=== PATIENT | female | born 2000 | race African-American/Black ===

== ENCOUNTER 2024-10-04 16:30 | Observation (INO) | payer MEDICAID, OTHER ==
[~2024-10-04] VITALS: Ht 170.2 cm; Wt 103.0 kg
[2024-10-04] MEDS ORDERED: PREN-96 PO (17:26)
[2024-10-04] MEDS ORDERED: METF-370 PO (17:26)
[2024-10-04] MEDS ORDERED: INSU1INJ19 SC (17:28)
--- NOTE | 2024-10-04 17:53 | DVH ---
BIOPHYSICAL PROFILE HISTORY: GDMA2 TECHNIQUE: Multiple transabdominal real-time grayscale sonographic images through the gravid uterus of the fetus with duplex Doppler color flow and M-mode spectral analysis FINDINGS: BIOPHYSICAL PROFILE: breathing score: 2 movement score: 2 tone score: 2 Quantitative MIGUEL score: 2 (MIGUEL: 12.5 Cm.) Total score: 8/8 Single live fetus in cephalic presentation. heart rate 142 beats per minute. Anterior Grade 2 placenta without previa or abruption Single live fetus at 34 weeks 2 days Biophysical profile score 8/8 corresponding to an JAQUAN of 11/13/2024 IMPRESSION: 1. Biophysical profile score: 8/8
[2024-10-04] MEDS: InsuLIN REG 1unit/0.01ml Soln (100units/ml) SC ONE (18:45)
[2024-10-04] MEDS: ACETAMINOPHEN 325 MG TAB PO ONE (18:46)
--- NOTE | 2024-10-05 06:17 | DVHDS2 ---
Discharge Summary Date of Admission Oct 04, 2024 at 16:30 Date of Discharge: Oct 04, 2024 Admitting Diagnosis GDMA2 Labs/Diagnostic Data: Laboratory Results Test 10/04/24 19:46 POC Glucose 194 mg/dl (70-106) Brief Hx & Hospital Course: patient with head ache , GDMA2 Operations or Procedures NST performed doing well reactive reassuring Condition at Discharge: Good Final Diagnosis/Problems List GDMA2 reassuring US and NST Discharge Disposition: Home Discharge Instruct/Medications Diet: Regular Activity: Light activity Follow Up/Referral: as scheduled kick counts labor precautions Scheduled Metformin Hydrochloride (Metformin Hcl), 1,000 MG PO DAILY, (Reported) Vit W/ Ferrous Fumara ( One Daily), 1 TAB PO DAILY, (Reported) Miscellaneous Medications Insulin Glargine (Basaglar Kwikpen), 100 UNIT SC, (Reported) Discharge Statement: "Patient was advised to return to the ER or call 911 if any headaches, dizziness, shortness of breath, chest pain, abdominal pain, bleeding, fevers, or worsening of medical condition. Patient was counseled about treatment plan, medications, possible side effects, patientverbalized understanding. All questions were answered to the best of my ability. This discharge took greater then 30 minutes in planning, reviewing documentation, counseling the patient, and discussing with other team members." ASSESSMENT ASSESSMENT Assessment Visit Coding OBGYN Date of Service: Oct 04, 2024 Billing Provider: RODOLFO TYLER DO WOOL MERCHANT Common Visit Codes: 19000-ZRI/OBS SAME DATE (LOW), 55496-TLG/OBS SAME DATE (MOD), 93194-UHY/OBS SAME DATE (HIGH) WOOL MERCHANT Procedure Codes: 69631-04- NON-STRESS TEST RODOLFO TYLER DO Oct 05, 2024 06:17
== END 2024-10-04 20:48 | disposition left against medical advice (07) ==
LOC: LDRP 16:30
PROVIDERS: ADMIT Obstetrics & Gynecology; ATTEND Obstetrics & Gynecology
DX: O24.419 Gestational diabetes mellitus in pregnancy, unspecified control (principal); Z3A.34 34 weeks gestation of pregnancy; Z98.890 Other specified postprocedural states; Z79.899 Other long term (current) drug therapy
CPT/HCPCS: 59025; 76819; 81002; 82948; 82962; 94760; 96372; G0378; J1815

== ENCOUNTER 2024-10-08 06:39 | Observation (INO) | payer MEDICAID ==
[~2024-10-08 06:39] MED LIST: INSU1INJ19 SC; METF-370 PO; PREN-96 PO
--- NOTE | 2024-10-09 12:45 | DVH ---
CLINICAL HISTORY: Gestational diabetes. COMPARISON: US BIOPHYSICAL PROFILE on DOS: 10/04/24 TECHNIQUE: biophysical profile was performed. Transabdominal sonographic images of the fetus we re obtained. FINDINGS: The fetus is in cephalic position. heart rate measures 127 BPM. Amniotic fluid index measures 12 cm. The placenta is anterior in position without evidence of previa or abruption. BPP profile is an overall score of 8/8, with 2/2 points for breathing, with at least one episode of breathing over a 30 second duration during a 30 minute observation, 2/2 points for m ovements, with 3 or more discrete body or limb movements, 2/2 points for tone, with one or more episodes of extremity extension with return to flexion, or opening and closing of hand, and 2/ 2 points for amniotic fluid, with at least 1 pocket of amniotic fluid that measures 2 cm in 2 perpend icular planes. IMPRESSION: BPP score of 8/8.
--- NOTE | 2024-10-10 07:34 | DVHDS2 ---
Physician Discharge Progress N Final Diagnosis: GDM 35WKS Operations or Procedures: Operations or Procedures NST REACTIVE REVIWED,SONO Condition on Discharge: Good Disposition: Home Discharge Instructions: Diet: Consistent carbohydrate Activity: No Restrictions, As Tolerated Medications: NA Follow Up Care: Specialist: 1W Discharge Statement: "Patient was advised to return to the ER or call 911 if any headaches, dizziness, shortness of breath, chest pain, abdominal pain, bleeding, fevers, or worsening of medical condition. Patient was counseled about treatment plan, medications, possible side effects, patientverbalized understanding. All questions were answered to the best of my ability. This discharge took greater then 30 minutes in planning, reviewing documentation, counseling the patient, and discussing with other team members." Visit Coding OBGYN Date of Service: Oct 09, 2024 Billing Provider: SNOW MCQUEEN DO CYLINDER HANDLER Common Visit Codes: 73258-[id number] INP/OBS CARE (HIGH) CYLINDER HANDLER Procedure Codes: 40256-26- NON-STRESS TEST SNOW MCQUEEN DO Oct 10, 2024 07:34
== END 2024-10-09 13:53 | disposition home or self-care (01) ==
LOC: EDBD → UNDOADMOB 11:00 → LDRP 11:00
PROVIDERS: ADMIT Obstetrics & Gynecology; ATTEND Obstetrics & Gynecology
DX: O24.419 Gestational diabetes mellitus in pregnancy, unspecified control (principal); Z3A.35 35 weeks gestation of pregnancy; Z98.890 Other specified postprocedural states; Z79.899 Other long term (current) drug therapy
CPT/HCPCS: 59025; 76819; 81002; 82948; 82962; G0378

== ENCOUNTER 2024-10-11 07:49 | Observation (INO) | payer MEDICAID ==
--- NOTE | 2024-10-11 14:01 | DVH ---
BIOPHYSICAL PROFILE HISTORY: GDMA2 TECHNIQUE: Multiple transabdominal real-time grayscale sonographic images through the gravid uterus of the fetus with duplex Doppler color flow and M-mode spectral analysis FINDINGS: BIOPHYSICAL PROFILE: breathing score: 2 of 2 movement score: 2 of 2 tone score: 2 of 2 Quantitative MIGUEL score: 2 of 2 (MIGUEL: 12 Cm.) Total score: 8 of 8 The cervix closed Single live fetus in cephalic presentation. heart rate 142 beats per minute. Anterior placenta without previa or abruption IMPRESSION: 1. Biophysical profile score: 8 of 8
--- NOTE | 2024-10-11 15:07 | DVHDS2 ---
Physician Discharge Progress N Final Diagnosis: GDM 35WKS Operations or Procedures: Operations or Procedures NST REACTIVE REVIWED,SONO Condition on Discharge: Good Disposition: Home Discharge Instructions: Diet: Consistent carbohydrate Activity: No Restrictions, As Tolerated Medications: NA Follow Up Care: Specialist: 4D Discharge Statement: "Patient was advised to return to the ER or call 911 if any headaches, dizziness, shortness of breath, chest pain, abdominal pain, bleeding, fevers, or worsening of medical condition. Patient was counseled about treatment plan, medications, possible side effects, patientverbalized understanding. All questions were answered to the best of my ability. This discharge took greater then 30 minutes in planning, reviewing documentation, counseling the patient, and discussing with other team members." Visit Coding OBGYN Date of Service: Oct 11, 2024 Billing Provider: SNOW MCQUEEN DO HEAD COACH Common Visit Codes: 48718-OPCYUJE INP/OBS CARE (HIGH) HEAD COACH Procedure Codes: 50528-80- NON-STRESS TEST SNOW MCQUEEN DO Oct 11, 2024 15:06
== END 2024-10-11 14:39 | disposition home or self-care (01) ==
LOC: LDRP 13:03 → UNDOADMOB 13:03 → LDRP 13:21
PROVIDERS: ADMIT Obstetrics & Gynecology; ATTEND Obstetrics & Gynecology
DX: O24.419 Gestational diabetes mellitus in pregnancy, unspecified control (principal); Z98.890 Other specified postprocedural states; Z79.899 Other long term (current) drug therapy; Z3A.35 35 weeks gestation of pregnancy
CPT/HCPCS: 59025; 76819; 81002; 82948; 94760; G0378

== ENCOUNTER 2024-10-18 15:58 | Observation (INO) | payer MEDICAID ==
--- NOTE | 2024-10-18 16:27 | DVHDS2 ---
Physician Discharge Progress N Final Diagnosis: GDM Operations or Procedures: Operations or Procedures NST/BPP MIGUEL all WNL Condition on Discharge: Stable Disposition: Home Discharge Instructions: Diet: Consistent carbohydrate Activity: Light activity Follow Up/Referral: As scheduled Medications: NA Follow Up Care: Discharge Statement: "Patient was advised to return to the ER or call 911 if any headaches, dizziness, shortness of breath, chest pain, abdominal pain, bleeding, fevers, or worsening of medical condition. Patient was counseled about treatment plan, medications, possible side effects, patientverbalized understanding. All questions were answered to the best of my ability. This discharge took greater then 30 minutes in planning, reviewing documentation, counseling the patient, and discussing with other team members." Visit Coding OBGYN Date of Service: Oct 18, 2024 Billing Provider: DANYEL DOS SANTOS DO TECHNICIAN AUTOMATED EQUIPMENT Common Visit Codes: 38044-ZZI/OBS SAME DATE (MOD) TECHNICIAN AUTOMATED EQUIPMENT Procedure Codes: 02510-81- NON-STRESS TEST DANYEL DOS SANTOS DO Oct 18, 2024 16:27
--- NOTE | 2024-10-18 16:49 | DVH ---
BIOPHYSICAL PROFILE HISTORY: GDMA2 TECHNIQUE: Multiple real-time grayscale sonographic images through the gravid uterus of the fetus wi th duplex Doppler color flow. FINDINGS: BIOPHYSICAL PROFILE: breathing score: 2 movement score: 2 tone score: 2 Quantitative MIGUEL score: 2 Total score: 8 out of 8 Placenta anteriorly positioned. Umbilical vessels appear to be looped around the neck. heart rate of 131 beats per minute. MIGUEL 10.5 cm IMPRESSION: Biophysical profile score: 8 out of 8 Findings suggestive of nuchal cord. Recommend marketing traffic manager consultation for further evaluation /management
== END 2024-10-18 17:30 | disposition home or self-care (01) ==
LOC: UNDOADMOB 15:58 → LDRP 15:58 → UNDODISOB 17:30
PROVIDERS: ADMIT Obstetrics & Gynecology; ATTEND Obstetrics & Gynecology
DX: O24.419 Gestational diabetes mellitus in pregnancy, unspecified control (principal); Z3A.36 36 weeks gestation of pregnancy; Z98.890 Other specified postprocedural states; Z79.899 Other long term (current) drug therapy
CPT/HCPCS: 59025; 76819; 81002; 82948; 82962; 94760; G0378

== ENCOUNTER 2024-10-20 17:54 | Observation (INO) | payer MEDICAID ==
[~2024-10-20] VITALS: Ht 170.2 cm; Wt 109.8 kg
--- NOTE | 2024-10-20 19:05 | DVH ---
BIOPHYSICAL PROFILE HISTORY: GDMA2 TECHNIQUE: Multiple transabdominal real-time grayscale sonographic images through the gravid uterus of the fetus with duplex Doppler color flow and M-mode spectral analysis FINDINGS: BIOPHYSICAL PROFILE: breathing score: 2 movement score: 2 tone score: 2 Quantitative MIGUEL score: 2 (MIGUEL: 11.8 Cm.) Total score: 8/8 Single live fetus in cephalic presentation. heart rate 141 beats per minute. Anterior Grade 2 placenta without previa or abruption Single live fetus at 36 weeks 4 days Biophysical profile score 8/8 corresponding to an JAQUAN of 11/13/2024 IMPRESSION: 1. Biophysical profile score: 8/8
--- NOTE | 2024-10-20 19:59 | DVHDS2 ---
Physician Discharge Progress N Final Diagnosis: testing for GDM, A2 Operations or Procedures: Operations or Procedures 24yo IUP@36+wks VSS NST reactive FKC/PTL precautions reviewed. Dr. Hernandez consulted, agrees POC. Other Interventions Other Interventions [address] [address] Ph: [phone] DIAGNOSTIC IMAGING Diagnostic Imaging Report : [id number] Signed PATIENT: GARCÍA NYQUAACCT: [id number] UNIT: [id number] : 2000 LOC: [facility] ROOM / BED: TRIAGE2 / A AGE / SEX: 24 / F ADM STATUS: ADM IN SERVICE 34 ORDERING PHYSICIAN: VICTORINO STARK CNM PROCEDURE(s): BPP - BIOPHYSICAL PROFILE REASON: GDMA2 ORDER NUMBER(s): [id number], ACCESSION NUMBER(s): [id number] BIOPHYSICAL PROFILE HISTORY: GDMA2 TECHNIQUE: Multiple transabdominal real-time grayscale sonographic images through the gravid uterus of the fetus with duplex Doppler color flow and M-mode spectral analysis FINDINGS: BIOPHYSICAL PROFILE: breathing score: 2 movement score: 2 tone score: 2 Quantitative MIGUEL score: 2 (MIGUEL: 11.8 Cm.) Total score: 8/8 Single live fetus in cephalic presentation. heart rate 141 beats per minute. Anterior Grade 2 placenta without previa or abruption Single live fetus at 36 weeks 4 days Biophysical profile score 8/8 corresponding to an JAQUAN of 11/13/2024 IMPRESSION: 1. Biophysical profile score: 8/8 ATED BY: NATHAN SNIDER Jr., DO DICTATED DATE/TIME: 10/20/241901 SIGNED BY: NATHAN SNIDER Jr., DO SIGNED DATE/TIME: 10/20/241901 CC: Condition on Discharge: Stable Disposition: Home Discharge Instructions: Diet: Consistent carbohydrate Activity: No Restrictions, As Tolerated Medications: see med list Follow Up Care: Specialist: f/u in 3 days Discharge Statement: "Patient was advised to return to the ER or call 911 if any headaches, dizziness, shortness of breath, chest pain, abdominal pain, bleeding, fevers, or worsening of medical condition. Patient was counseled about treatment plan, medications, possible side effects, patientverbalized understanding. All questions were answered to the best of my ability. This discharge took greater then 30 minutes in planning, reviewing documentatio n, counseling the patient, and discussing with other team members." Visit Coding OBGYN Date of Service: Oct 20, 2024 Billing Provider: VICTORINO STARK CNM NITRILES LAB TECHNICIAN Common Visit Codes: 40810-HVLGVCE OBS CARE (HIGH) NITRILES LAB TECHNICIAN Procedure Codes: 44081-47- NON-STRESS TEST VICTORINO STARK CNM Oct 20, 2024 19:59
[2024-10-20 20:57] LABS: Hematocrit 35.0 % (36.0-46.0); Hemoglobin 12.0 g/dL (12.2-16.2); Mean Corpuscular Hemoglobin 31.3 pg (28.0-32.0); Mean Corpuscular Volume 91.5 fL (80.0-100.0); Nucleated Red Blood Cells % 0.1 %
[2024-10-20 21:11] LABS: INR 0.92 (0.9-1.15); Partial Thromboplastin Time 28.3 SEC (24.5-34.5); Prothrombin Time 9.8 sec (9.3-11.8)
[2024-10-20 21:16] LABS: Alanine Aminotransferase 11 U/L (7-40); Albumin 3.8 g/dL (3.2-4.8); Anion Gap 9 (5-15); BUN/Creatinine Ratio 9.0 (10.0-20.0); Calcium 9.0 mg/dL (8.7-10.4); Carbon Dioxide 23 mmol/L (20-31); Chloride 107 mmol/L (98-107); Potassium 4.5 mmol/L (3.5-5.1); Sodium 139 mmol/L (136-145); Total Protein 6.5 g/dL (5.7-8.2); Uric Acid 6.1 mg/dL (3.1-7.8)
[2024-10-20 21:18] LABS: Urine Protein, UAD 1+ (Negative)
[2024-10-20 21:18] LABS: Alkaline Phosphatase 236 U/L (46-116); Bilirubin, Total 0.3 mg/dL (0.2-1.0); Blood Urea Nitrogen 6 mg/dL (9-23); Glucose 106 mg/dL (74-106)
[2024-10-20 21:19] LABS: Protein, Urine 19.9 mg/dL (1-14)
== END 2024-10-20 22:11 | disposition home or self-care (01) ==
LOC: LDRP 17:54
PROVIDERS: ADMIT Obstetrics & Gynecology; ATTEND Obstetrics & Gynecology
DX: O24.419 Gestational diabetes mellitus in pregnancy, unspecified control (principal); Z3A.36 36 weeks gestation of pregnancy; Z98.890 Other specified postprocedural states; Z79.899 Other long term (current) drug therapy; Z86.2 Personal history of diseases of the blood and blood-forming organs and certain disorders involving the immune mechanism
CPT/HCPCS: 36415; 59025; 76819; 80053; 81001; 81002; 82570; 82962; 84156; 84550; 85025; 85379; 85610; 85730; 94760; G0378

== ENCOUNTER 2024-11-02 15:35 | Inpatient (IN) | payer MEDICAID ==
[~2024-11-02] VITALS: Ht 170.2 cm; Wt 112.0 kg
[2024-11-02 02:00] VITALS: RESP 16; O2SAT 97
--- NOTE | 2024-11-02 16:54 | DVH ---
BIOPHYSICAL PROFILE HISTORY: GDMA2 TECHNIQUE: Multiple transabdominal real-time grayscale sonographic images through the gravid uterus of the fetus with duplex Doppler color flow and M-mode spectral analysis FINDINGS: BIOPHYSICAL PROFILE: breathing score: 2 movement score: 2 tone score: 2 Quantitative MIGUEL score: 2 (MIGUEL: 10.92 Cm.) Total score: 8 The cervix is not well-visualized Single live fetus in cephalic presentation. heart rate 144 beats per minute. Anterior placenta without previa or abruption IMPRESSION: Biophysical profile score: 8/8
[2024-11-02] MEDS: hydrALAZINE HCL 20 MG/ML VL IV ONE (17:12)
[2024-11-02 17:27] LABS: Hematocrit 35.4 % (36.0-46.0); Hemoglobin 12.1 g/dL (12.2-16.2); Mean Corpuscular Hemoglobin 31.4 pg (28.0-32.0); Mean Corpuscular Volume 91.8 fL (80.0-100.0); Nucleated Red Blood Cells % 0.1 %
[2024-11-02 17:35] LABS: Urine Protein, UAD 3+ (Negative)
[2024-11-02] MEDS: LABETALOL HCL 200 MG TAB PO ONE (17:40)
[2024-11-02 17:43] LABS: Amphetamine Screen, Urine Neg (NEGATIVE); Barbiturate Scree,Urine Neg (NEGATIVE); Benzodiazephine Screen, Urine Neg (NEGATIVE); Cocaine Screen, Urine Neg (NEGATIVE); Opiate Scree,Urine Neg (NEGATIVE)
[2024-11-02 17:43] LABS: INR 0.92 (0.9-1.15); Partial Thromboplastin Time 27.4 SEC (24.5-34.5); Prothrombin Time 9.8 sec (9.3-11.8)
[2024-11-02 17:46] LABS: Alanine Aminotransferase 12 U/L (7-40); Albumin 3.7 g/dL (3.2-4.8); Anion Gap 9 (5-15); BUN/Creatinine Ratio 13.6 (10.0-20.0); Calcium 9.1 mg/dL (8.7-10.4); Carbon Dioxide 22 mmol/L (20-31); Glucose 105 mg/dL (74-106); Potassium 4.3 mmol/L (3.5-5.1); Sodium 138 mmol/L (136-145); Total Protein 6.4 g/dL (5.7-8.2); Uric Acid 6.7 mg/dL (3.1-7.8)
[2024-11-02 17:47] LABS: Cannabinoid Screen, Urine Neg (NEGATIVE); Phencyclidine Screen, Urine Neg (NEGATIVE); Protein, Urine 789.0 mg/dL (1-14)
[2024-11-02 17:48] LABS: Alkaline Phosphatase 248 U/L (46-116); Bilirubin, Total 0.3 mg/dL (0.2-1.0); Blood Urea Nitrogen 9 mg/dL (9-23); Chloride 107 mmol/L (98-107)
[2024-11-02] MEDS: LACT. RINGERS/OXYTOCIN 20UNITS 500 ML IV ONE ×2 (18:00→18:30)
[2024-11-02] MEDS ORDERED: LIDOCAINE 2%HCL (LOCAL ANESTH.) INJ 20ML MDV IJ PRN (18:00)
[2024-11-02] MEDS ORDERED: DERMOPLAST 60ML BOTTLE TOP PRN (18:00)
[2024-11-02] MEDS ORDERED: PHISODERM TOP SOLN 240ML BTL TOP PRN (18:00)
[2024-11-02] MEDS ORDERED: WITCH HAZEL-GLYCERIN PAD TOP PRN (18:00)
--- NOTE | 2024-11-02 18:14 | DVHHP2 ---
OB CC & HPI Date Date of Admission: Nov 02, 2024 Patient Identification: : 2 Para: 0 EDC: Nov 13, 2024 EGA: 38.3wks Allergies: Uncoded Allergies: CATS (Allergy, Mild, HIVES, 10/20/24) DOGS (Allergy, Mild, HIVES, 10/20/24) DUST (Allergy, Mild, ITCH, 10/20/24) GRASS (Allergy, Mild, HIVES, 10/20/24) MICE (Allergy, Mild, HIVES, 10/20/24) POLLEN (Allergy, Mild, HIVES, 10/20/24) TREES (Allergy, Mild, ITCH, 10/20/24) Home Meds Active Scripts Ibuprofen (Ibuprofen) 800 Mg Tab, 800 MG PO TID PRN for 5 Days, #23 TAB Prov:SNOW MCQUEEN DO 11/02/24 Hydrocodone-Acetaminophen (Hydrocodone/Acetaminophen 10-325 mg) 1 Tab Tab, 1 TAB PO Q6HPRN PRN for 7 Days, #28 TAB Prov:SNOW MCQUEEN 11/02/24 Docusate Sodium (Colace) 100 Mg Cap, 1 CAP PO BID, #60 CAP 2 Refills Prov:SNOW MCQUEEN DO 11/02/24 Cephalexin Monohydrate (Cephalexin) 500 Mg Cap, 500 MG PO QID for 7 Days, #28 CAP Prov:SNOW MCQUEEN DO 11/02/24 Reported Medications Insulin Glargine (Basaglar Kwikpen) 100 Unit/Ml Inj, 100 UNIT SC, INJ 10/04/24 Metformin Hydrochloride (Metformin Hcl) 500 Mg Tab, 1000 MG PO DAILY for 30 Days, MG 10/04/24 Vit W/ Ferrous Fumara ( One Daily) Daily Tab, 1 TAB PO DAILY, #30 TAB 11 Refills 10/04/24 Current Medications Current Medications Medications (Trade) Dose Ordered Sig/Lynn Route PRN Reason Start Time Stop Time Status Last Admin Hydralazine HCl (Apresoline Injection) 5 mg Q20MP PRN IV SBP>160 11/02/24 17:15 Witch Estela (Tucks) 1 pad PRN PRN TOP PERINEAL AREA DISCOMFORT 11/02/24 18:00 UNV Sodium Lauryl Sulfate (Phisoderm) 240 ml PRN PRN TOP PERINEAL AREA DISCOMFORT 11/02/24 18:00 UNV Benzocaine (Dermoplast) 1 applic PRN PRN TOP PERINEAL AREA DISCOMFORT 11/02/24 18:00 UNV Misoprostol (Cytotec) 50 mcg Q4HPRN PRN PO CERVICAL RIPENING 11/02/24 18:00 UNV Lidocaine HCl (Xylocaine) 20 ml ONCE PRN IJ PERINEAL AREA DISCOMFORT 11/02/24 18:00 UNV Lactated Ringer's 1,000 ml @ 75 mls/hr [id number] IV 11/02/24 18:00 UNV Magnesium Sulfate 1,000 ml @ 50 mls/hr Q20H IV 11/02/24 18:00 UNV OB Admission Exam Physical Exam Vitals: Vital Signs Date Time Temp Pulse Resp B/P (MAP) Pulse Ox O2 Delivery O2 Flow Rate FiO2 11/02/24 17:40 93 147/92 HEENT: TMs Normal, Fontanelles Normal, Nasal Mucosa Normal, Eyes non-injected, Oropharynx Normal, PERRLA, Moist Membranes, EOMI Heart: Rhythm Normal Lungs: Clear Abdomen: Gravid Extremities: Normal Reflexes: Normal Pelvic Exam: SVE by RN: 1.5/THICK/-3 Membranes: Intact Heart Rate: 130's Accelerations: Accelerations Present Decelerations: No Decelerations Tooth Cutter Pinion Variability: Average (6-25) Contractions on Admission: None OB Plan Plan Admitting Diagnosis: Induction of labor VICTORINO STARK CNM Nov 02, 2024 18:14
[2024-11-02] MEDS: hydrALAZINE HCL 20 MG/ML VL IV PRN (18:35)
[2024-11-02] MEDS: MAGNESIUM SULFATE 40MG/ML 1,000 ML IV SCH (18:43)
[2024-11-02] MEDS ORDERED: ONDANSETRON HCL 4 MG/2 ML VIAL ONE (19:32)
[2024-11-02] MEDS ORDERED: fentaNYL CITRATE 100 MCG/2 ML VL ONE (19:32)
[2024-11-02] MEDS ORDERED: MORPHINE SULF PF 5 MG/10 ML VIAL ONE (19:32)
[2024-11-02] MEDS ORDERED: BUPIVACAINE/DEXTROSE MPF 0.75% 2 ML AMP IT ONE (19:58)
[2024-11-02] MEDS: CARBOPROST TROMETHAMINE 250 MCG/1ML VIAL IM ONE (20:03)
[2024-11-02] MEDS ORDERED: DOCU-94 PO (20:09)
[2024-11-02] MEDS ORDERED: IBUP-1456 PO (20:09)
[2024-11-02] MEDS ORDERED: CEPH500C PO (20:09)
[2024-11-02] MEDS ORDERED: HYDR-4072 PO (20:09)
[2024-11-02] MEDS: GUM (CHEWING) 1 GUM CHEW CHEW ONE (20:15)
[2024-11-02] MEDS ORDERED: ONDANSETRON HCL 4 MG/2 ML VIAL IV PRN ×2 (20:15→21:30)
[2024-11-02] MEDS: LACT. RINGERS/OXYTOCIN 20UNITS 1,000 ML IV ONE (20:15)
--- NOTE | 2024-11-02 20:15 | DVHHP ---
ADMIT DATE: 11/02/2024 CHIEF COMPLAINT: Severe preeclampsia remote from vaginal delivery. Desires primary . HISTORY OF PRESENT ILLNESS: The patient is a 24-year-old 2, para 0, with EDC 11/13/2024, estimated gestational age of 38+ weeks, admitted for induction of labor after the patient was showing severe features of preeclampsia. The patient has been noncompliant with diabetes. She was sent to Labor and Delivery for monitoring, which she had missed for several weeks. She has also been very noncompliant with her GDM. Estimated weight was 712. The patient was sent down for surveillance, for which she was noted to have 3+ proteinuria, UPC of 2+, 2.6. Blood pressures were ranging very high, 170/105. The patient was given 300 of labetalol p.o. followed by multiple doses of hydralazine, despite which continued with high blood pressure. She was started on magnesium sulfate. The patient denies having any vaginal bleeding or rupture of membrane. Subsequently, options were reviewed with the patient. Risk of uterine atony, shoulder dystocia due to noncompliance discussed with the patient. The patient was started on magnesium and the patient opted to have primary . PAST MEDICAL HISTORY: None. PAST SURGICAL HISTORY: D and Cx1. SOCIAL HISTORY: None. FAMILY HISTORY: None. ALLERGIES: CATS, DOGS, GRASS, DUST. PHYSICAL EXAMINATION: VITAL SIGNS: At this point, blood pressure 150/90 after several doses of hydralazine. HEENT: Within normal limits. CARDIOVASCULAR: Regular rate and rhythm. LUNGS: Clear to auscultation. BREASTS: Symmetrical, no masses. ABDOMEN: Gravid. PELVIC: 1 cm, 25, -3. EXTREMITIES: No clubbing, cyanosis, +2 edema. IMPRESSION: * Intrauterine at 38+ weeks with severe preeclampsia. * GDMA2, completely noncompliant. PLAN: Primary low transverse section. Informed consent was obtained. Risks and complications of surgery including infection; bleeding; hematoma formation; injury to bowel, bladder, or surrounding organ; possibility of DVT; pulmonary embolus; and risk of anesthesia discussed with the patient. Options reviewed. All questions answered. Need for future repeat section discussed with the patient. The patient fully understands. She wishes to proceed with planned procedure. DO CYNTHIA Fry TID: [id number] RECEIPT: [id number]
[2024-11-02] MEDS ORDERED: TRANEXAMIC ACID 10 ML ONE (20:24)
--- NOTE | 2024-11-02 20:47 | DVHOP2 ---
Operative Report DATE OF OPERATION: 11/02/24 PREOPERATIVE DIAGNOSES: iup at 38wks induction of labor ,severe pih remote from vag del ,noncompliancy w/gdma2,morbid obesity POSTOPERATIVE DIAGNOSES: same,op,nuchal cord,cord around foot SURGEON: Halima Hernandez D.O./wilfredo ANESTHESIOLOGIST: antonio TYPE OF ANESTHESIA : spinal CONSENT: The patient was informed of the risks and benefits of the procedure. The patient was informed of the risks and benefits of the procedure. These include but are not limited to , complications of anesthesia, postoperative infection, incomplete relief of symptoms, recurrence of symptoms, damage to blood vessels, nerves and tendons, deep venous thrombosis, pulmonary embolism and possible need for repeat surgery in the future. FINDINGS: Baby [b] with Apgars of [8] and [9]. Grossly normal appearing tubes and ovaries.op,nuchal cord and cord around foot PROCEDURES: Primary low transverse section. PROCEDURE IN DETAIL: The patient was taken to the operating room. She already had an epidural in place. She was then placed in supine position with a leftward tilt. A Pfannenstiel skin incision was made 2 cm above the symphysis pubis. This incision was carried to the underlying layer of fascia. The fascia was nicked in the midline. The incision was extended laterally. The superior aspect of the fascial incision was grasped and elevated. The same procedure was done to the inferior aspect of the fascial incision. The rectus muscles were then in the midline. Peritoneum was identified and entered. Peritoneal incision was extended superiorly and inferiorly with good visualization of the bladder. Bladder blade was inserted. Vesicouterine peritoneum was identified and entered. Lower uterine segment was incised in a transverse fashion. The infant was delivered from vertex presentation. Infant was baby [b] with Apgars [8] and [9]. Placenta was then removed manually. Uterus was exteriorized and cleared of all clots and debris. The incision was repaired using 0 Vicryl in a double-layered fashion. No bleeding was noted. Uterus was then returned to the abdomen. The gutters were cleared off all clots and debris. Peritoneum was closed using 0 Vicryl, fascia was closed using 0 Maxon, and skin was closed using jody. The patient tolerated the procedure well. She was taken to the recovery room in stable condition. ESTIMATED BLOOD LOSS: Estimated blood loss was noted to be 500 mL. Visit Coding OBGYN Date of Service: Nov 02, 2024 Billing Provider: HALIMA HERNANDEZ DO OUTBOUND SALES EXECUTIVE Common Visit Codes: 46712-YEFRCUT INP/OBS CARE (HIGH) OUTBOUND SALES EXECUTIVE Procedure Codes: 67349-K-UZRGRLA DELIVERY ONLY HALIMA HERNANDEZ DO Nov 02, 2024 20:47
--- NOTE | 2024-11-02 20:49 | POSTOP ---
Post-Operative Note Post-Operative Note Preop Diagnosis iup at 38wks w/severe pih,gdma2,non compliancy w/gdm,morbid obesity Postop Diagnosis: same,op,nuchal cord and cord around foot Operation performed pltcs Specimen baby boy,apgars 8-9,nuchal cord and cord around foot Anesthesia: Regional Anesthesiologist: antonio Blood Loss(fluid mgmt) 500ml Surgeon Snow Hernandez Binding Machine Operator wilfredo Implant na Complications & Mgmt none Date 11/02/24 Time 20:47 Visit Coding OBGYN Date of Service: Nov 02, 2024 Billing Provider: SNOW HERNANDEZ DO DYNAMIC ETCHING PROCESSOR Common Visit Codes: 96954-VOVGMUV INP/OBS CARE (HIGH) DYNAMIC ETCHING PROCESSOR Procedure Codes: 84660-W-BFMCXSL DELIVERY ONLY SNOW HERNANDEZ DO Nov 02, 2024 20:49
[2024-11-02 21:13] VITALS: PULSE 90; RESP 13; O2SAT 98
[2024-11-02] MEDS ORDERED: diphenhdrAMINE HCL 50 MG/1 ML VL IV PRN (21:30)
[2024-11-02] MEDS ORDERED: HYDROmorphone HCL 2 MG/ML VL/or syr IV PRN (21:30)
[2024-11-02] MEDS: NALBUPHINE HCL 10 MG/1ml INJECTION IV ONE (21:30)
[2024-11-02] MEDS ORDERED: NALOXONE HCL 0.4 MG/ML VIAL IV PRN (21:30)
[2024-11-02 21:50] VITALS: BP 143/111; PULSE 88; RESP 18; TEMP 97.7; O2SAT 98
[2024-11-02] MEDS: hydrALAZINE HCL 20 MG/ML VL ONE (22:03)
[2024-11-02 22:25] VITALS: BP 141/89; PULSE 90; RESP 15; O2SAT 96
[2024-11-02 23:13] LABS: Hematocrit 36.1 % (36.0-46.0); Hemoglobin 12.3 g/dL (12.2-16.2); Mean Corpuscular Hemoglobin 31.3 pg (28.0-32.0); Mean Corpuscular Volume 91.8 fL (80.0-100.0); Nucleated Red Blood Cells % 0.0 %
[2024-11-02 23:25] VITALS: BP 159/92; PULSE 86; RESP 16; O2SAT 96
[2024-11-03] VITALS (28 sets, daily range): BP systolic 113–153; BP diastolic 59–92; PULSE 86–98; RESP 14–20; TEMP 98–99.2; O2SAT 93–98
[2024-11-03] MEDS: MAGNESIUM SULFATE 40MG/ML 1,000 ML IV SCH (02:02)
[2024-11-03] MEDS: MAGNESIUM SULFATE 100 ML IV ONE (02:58)
[2024-11-03] MEDS: ceFAZolin 2 GM/D5W50ml 50 ML IV ONE (03:00)
[2024-11-03] MEDS: ceFAZolin 1GM/50ML 50 ML IV SCH (04:05)
[2024-11-03] MEDS: LACTATED RINGER'S 1,000 ML IV SCH (04:13)
[2024-11-03] MEDS: LABETALOL HCL 200 MG TAB PO SCH ×2 (05:36→18:04)
[2024-11-03 08:08] LABS: Hematocrit 34.7 % (36.0-46.0); Hemoglobin 11.7 g/dL (12.2-16.2); Mean Corpuscular Hemoglobin 31.0 pg (28.0-32.0); Mean Corpuscular Volume 91.8 fL (80.0-100.0); Nucleated Red Blood Cells % 0.0 %
--- NOTE | 2024-11-03 08:48 | DVHPN2 ---
Chief Complaints Patient reports: No new complaints Nursing reports: No new complaints Objective Vitals Vital Signs Date Time Temp Pulse Resp B/P (MAP) Pulse Ox O2 Delivery O2 Flow Rate FiO2 11/03/24 07:10 99.2 93 16 128/76 (93) 95 99.2 11/03/24 05:00 Room Air Medications Current Medications Medications (Trade) Dose Ordered Sig/Lynn Route PRN Reason Start Time Stop Time Status Last Admin Benzocaine (Dermoplast) 1 applic PRN PRN TOP PERINEAL AREA DISCOMFORT 11/02/24 18:00 Cefazolin Sodium 50 ml @ 100 mls/hr Q8H IV 11/03/24 05:00 11/03/24 21:29 11/03/24 04:05 Diphenhydramine HCl (Benadryl Injection) 25 mg Q4HP PRN IV FOR ITCHING 11/02/24 21:30 Hydralazine HCl (Apresoline Injection) 5 mg Q20MP PRN IV SBP>160 11/02/24 17:15 11/02/24 22:02 Labetalol HCl (Normodyne Tablet) 300 mg Q12HR PO 11/03/24 06:00 11/03/24 05:36 Lactated Ringer's 1,000 ml @ 75 mls/hr [id number] IV 11/02/24 18:00 11/03/24 04:13 Lidocaine HCl (Xylocaine) 20 ml ONCE PRN IJ PERINEAL AREA DISCOMFORT 11/02/24 18:00 Magnesium Sulfate 1,000 ml @ 50 mls/hr Q20H IV 11/02/24 18:00 11/02/24 18:43 Magnesium Sulfate 1,000 ml @ 50 mls/hr Q20H IV 11/03/24 02:00 11/03/24 02:02 Ondansetron HCl (Zofran) 4 mg Q4HP PRN IV NAUSEA / VOMITING 11/02/24 20:15 Ondansetron HCl (Zofran) 4 mg Q4HP PRN IV NAUSEA / VOMITING 11/02/24 21:30 UNV Sodium Lauryl Sulfate (Phisoderm) 240 ml PRN PRN TOP PERINEAL AREA DISCOMFORT 11/02/24 18:00 Witch Estela (Tucks) 1 pad PRN PRN TOP PERINEAL AREA DISCOMFORT 11/02/24 18:00 General: Normal Lungs: Normal Cardiovascular: Normal Abdominal: Soft Extremities: Normal Studies Laboratory Tests 11/03/24 07:57 11/02/24 16:58 Test 11/02/24 16:58 Range/Units Serum Glucose 105 74-106 mg/dL Ass/Plan Assessment s/p pcs Plan supportive care Visit Coding OBGYN Date of Service: Nov 03, 2024 Billing Provider: SNOW MCQUEEN DO GUARDIAN FAMILY MEMBER Common Visit Codes: [id number] INP/OBS CARE(HIGH) GUARDIAN FAMILY MEMBER Procedure Codes: 92514-G-[id number] DELIVERY ONLY SNOW MCQUEEN DO Nov 03, 2024 08:48
[2024-11-03] MEDS ORDERED: BISACODYL 10 MG RECT SUPP PR PRN (20:45)
[2024-11-03] MEDS ORDERED: HYDROcodone-ACET 5/325MG TAB PO PRN ×2 (20:45)
[2024-11-03] MEDS ORDERED: HYDROcodone-ACET 10/325MG TAB PO PRN (21:00)
[2024-11-03] MEDS: SIMETHICONE 80 MG CHEWABLE TABLET PO SCH (21:44)
[2024-11-03] MEDS: DOCUSATE SOD 100 MG CAP PO SCH (21:44)
[2024-11-04] MEDS: IBUPROFEN 800 MG TAB PO PRN (01:00)
--- NOTE | 2024-11-04 01:11 | DVHPN2 ---
Progress Note Date Seen: Nov 04, 2024 Subjective S: Pt is feeling well, pain well controlled with PO meds, voiding, no BM or flatus yet, ambulating. Denies JENKINS, blurry vision or epigastric pain vital signs Vital Sign Date Time Temp Pulse Resp B/P (MAP) Pulse Ox O2 Delivery O2 Flow Rate FiO2 11/03/24 23:00 98.6 95 18 120/74 (89) 95 98.6 11/03/24 19:00 Room Air Total Intake and Output 11/03/24 11/03/24 11/04/24 15:00 23:00 07:00 Intake Total 1000 ml 375 ml Output Total 1790 ml 1375 ml Balance -790 ml -1000 ml medications Current Medications Medications Dose Ordered Sig/Lynn Route Start Time Stop Time Status Last Admin Dose Admin Hydralazine HCl 5 mg Q20MP PRN IV 11/02/24 17:15 11/02/24 22:02 5 MG Witch Estela 1 pad PRN PRN TOP 11/02/24 18:00 Sodium Lauryl Sulfate 240 ml PRN PRN TOP 11/02/24 18:00 Benzocaine 1 applic PRN PRN TOP 11/02/24 18:00 Lidocaine HCl 20 ml ONCE PRN IJ 11/02/24 18:00 Cancel Lactated Ringer's 1,000 ml @ 75 mls/hr [id number] IV 11/02/24 18:00 11/03/24 04:13 75 MLS/HR Magnesium Sulfate 1,000 ml @ 50 mls/hr Q20H IV 11/02/24 18:00 11/02/24 18:43 50 MLS/HR Ondansetron HCl 4 mg Q4HP PRN IV 11/02/24 20:15 Diphenhydramine HCl 25 mg Q4HP PRN IV 11/02/24 21:30 Ondansetron HCl 4 mg Q4HP PRN IV 11/02/24 21:30 UNV Magnesium Sulfate 1,000 ml @ 50 mls/hr Q20H IV 11/03/24 02:00 11/03/24 02:02 50 MLS/HR Labetalol HCl 300 mg Q12H PO 11/03/24 18:00 11/03/24 18:04 300 MG Docusate Sodium 100 mg Q12HR PO 11/03/24 22:00 11/03/24 21:44 100 MG Dimethicone 80 mg QID PO 11/03/24 22:00 11/03/24 21:44 80 MG Bisacodyl 10 mg DAILYP PRN TX 11/03/24 20:45 Ibuprofen 800 mg Q8HP PRN PO 11/03/24 20:45 Acetaminophen/ Hydrocodone Bitart 1 tab Q4HPRN PRN PO 11/03/24 20:45 Acetaminophen/ Hydrocodone Bitart 1 tab Q4HPRN PRN PO 11/03/24 21:00 laboratory and microbiology Laboratory Tests 11/03/24 07:57 11/02/24 16:58 Test 11/02/24 16:58 Range/Units Serum Glucose 105 74-106 mg/dL Objective O: VSS Chest: heart and lung sounds normal. Abd soft, non-tender, fundus firm, BS, some guarding on palpation, Incision - sylke dressing, clean, dry, intact BLE: Non-tender, mild +1 edema Lochia - minimal Labs resulted Problems(with codes): (1) Preeclampsia (2) GDM, class A2 (3) 38 weeks gestation of Assessment/Plan A; 24 yo POD#1 s/p primary C/S Preeclampsia Rh status + Rubella status equivocal Pain control with PO medications P: Continue with post op care Monitor VS and I&O CNM co-managing care with Dr. Hernandez who is managing preeclampsia Plan discussed with: Patient, Spouse DANA JAMESMARISSA LARES Nov 04, 2024 01:11
[2024-11-04 03:00] VITALS: BP 123/76; PULSE 96; RESP 17; TEMP 98.5; O2SAT 96
[2024-11-04 07:16] VITALS: BP 130/80; PULSE 95; RESP 16; O2SAT 95
[2024-11-04 10:47] VITALS: BP 134/78; PULSE 103; RESP 20; TEMP 99.3
[2024-11-04 15:18] VITALS: BP 142/83; PULSE 103; RESP 16; TEMP 98.8; O2SAT 96
[2024-11-04 19:00] VITALS: BP 144/82; PULSE 88; TEMP 99.4; O2SAT 97
[2024-11-04 23:07] VITALS: BP 120/77; PULSE 88; RESP 19; TEMP 98.3; O2SAT 97
--- NOTE | 2024-11-05 02:10 | DVHPN2 ---
Progress Note Date Seen: Nov 05, 2024 Subjective Patient sitting up in bed upon entry to room. Baby resting in bassinet at bedside. Subjective: -Lochia minimal -Regular diet well tolerated. -Ambulating and voiding well w/o feeling dizzy or lightheaded -Pain relieved with oral medication PRN -Passing flatus and had small bowel movement - and pumping w/o problem - Contraceptive plan: Undecided -Desires and requests to be discharged home today (11/05) vital signs Vital Sign Date Time Temp Pulse Resp B/P (MAP) Pulse Ox O2 Delivery O2 Flow Rate FiO2 11/04/24 23:07 98.3 88 19 120/77 (91) 97 98.3 11/04/24 19:00 Room Air Total Intake and Output 11/04/24 11/04/24 11/05/24 15:00 23:00 07:00 Output Total 900 ml Balance -900 ml medications Current Medications Medications Dose Ordered Sig/Lynn Route Start Time Stop Time Status Last Admin Dose Admin Hydralazine HCl 5 mg Q20MP PRN IV 11/02/24 17:15 11/02/24 22:02 5 MG Witch Estela 1 pad PRN PRN TOP 11/02/24 18:00 Sodium Lauryl Sulfate 240 ml PRN PRN TOP 11/02/24 18:00 Benzocaine 1 applic PRN PRN TOP 11/02/24 18:00 Lidocaine HCl 20 ml ONCE PRN IJ 11/02/24 18:00 Cancel Ondansetron HCl 4 mg Q4HP PRN IV 11/02/24 20:15 Diphenhydramine HCl 25 mg Q4HP PRN IV 11/02/24 21:30 Ondansetron HCl 4 mg Q4HP PRN IV 11/02/24 21:30 UNV Labetalol HCl 300 mg Q12H PO 11/03/24 18:00 11/04/24 17:35 300 MG Docusate Sodium 100 mg Q12HR PO 11/03/24 22:00 11/04/24 22:22 100 MG Dimethicone 80 mg QID PO 11/03/24 22:00 11/04/24 22:22 80 MG Bisacodyl 10 mg DAILYP PRN SD 11/03/24 20:45 Ibuprofen 800 mg Q8HP PRN PO 11/03/24 20:45 11/04/24 23:27 800 MG Acetaminophen/ Hydrocodone Bitart 1 tab Q4HPRN PRN PO 11/03/24 20:45 Acetaminophen/ Hydrocodone Bitart 1 tab Q4HPRN PRN PO 11/03/24 21:00 laboratory and microbiology Laboratory Tests 11/03/24 07:57 11/02/24 16:58 Test 11/02/24 16:58 Range/Units Serum Glucose 105 74-106 mg/dL Objective Objective: -A&O x4. No apparent distress. Affect appropriate -Afebrile, VSS -Chest: heart and lung sounds normal. -Breasts: Nipples intact w/o cracks or soreness -Abdomen: normal BS, soft, non-tender, no rebound or guarding, fundus firm @ U- 1, -Lower abdominal incision site with dressing dry and intact. No edema, erythema or induration -Extremities: mild bilat pedal edema. no tenderness Problems(with codes): (1) S/P section (2) GDM, class A2 (3) Preeclampsia Assessment/Plan Assessment: 24 yo now Post operative & ppd # 2 s/p Primary Section for pre- eclampsia with severe features, doing well. Blood Type: O+ Breast feeding Rubella Equivocal Plan: -Continue pain management with oral medications as previously ordered -Offer MMR immunization, per protocol -Continue adequate fluid intake and fiber in diet to promote regular bowel movements -Educated patient on self-care and warning signs to watch for, including PPH, PPD, infection, and pre-eclampsia -Continue routine care and anticipate discharge today Plan discussed with: Patient, Spouse Visit Coding OBGYN Date of Service: Nov 05, 2024 Billing Provider: TONY ENRIQUEZ CNM PORTABLE CANTEEN OPERATOR Common Visit Codes: [id number] INP/OBS CARE(HIGH) TONY ENRIQUEZ CNM Nov 05, 2024 02:10
--- NOTE | 2024-11-05 02:13 | DVHDS2 ---
Obstetrics Discharge Summary Obstetrics Discharge Summary Date of Admission: Nov 02, 2024 Date of Discharge: Nov 05, 2024 Reason For Admission: Section (Primary) Intrapartum Procedures: (Low Cervical Transverse) Procedures: Rubella Ig, Hct/date: (34.7), Hgb/date: (11.7) Discharge Diagnosis: Term -Delivered, Preeclampsia Discharge Information: Activity (Unrestricted. Advance as tolerated. Balance activities with rest periods. No heavy lifting, pushing or straining. Pelvic rest x 6 weeks), Diet (Routine regular diet rich in fiber, protein, iron and v itamin C with adequate fluid intake.), Medications (See med list.), Discharge to (Home), Discarge date (11/05/2024) Discharge Care Plan Instructions - self care instructions given - emergency signs and symptoms including but not limited to pre-eclampsia precautions and signs of infection, PPH & of PPD reviewed with patient. -Follow up with OB Provider in 1 week for incision check Visit Coding OBGYN Date of Service: Nov 05, 2024 Billing Provider: TONY ENRIQUEZ CNM DENTAL TECHNICIAN METAL Common Visit Codes: [id number] DISCH DAY >30MIN TONY ENRIQUEZ CNM Nov 05, 2024 02:13
[2024-11-05 03:15] VITALS: BP 146/90; PULSE 103; RESP 17; TEMP 98.7; O2SAT 98
[2024-11-05 07:00] VITALS: BP 142/87; PULSE 96; RESP 20; TEMP 98.8; O2SAT 97
== END 2024-11-05 12:59 | disposition home or self-care (01) | DRG 540 ==
LOC: LDRP 15:35 → UNDOADMOB 15:35 → LDRP 15:46 → OBSVTOIN 17:35 → LDRP 17:36
PROVIDERS: ADMIT Obstetrics & Gynecology; ATTEND Obstetrics & Gynecology
PROC: 10D00Z1 Extraction of Products of Conception, Low, Open Approach (ICD-10-PCS; principal; 2024-11-02 20:07)
DX: O14.14 Severe pre-eclampsia complicating childbirth (principal); O99.214 Obesity complicating childbirth; E66.01 Morbid (severe) obesity due to excess calories; O69.81X0 Labor and delivery complicated by cord around neck, without compression, not applicable or unspecified; Z37.0 Single live birth; O24.425 Gestational diabetes mellitus in childbirth, controlled by oral hypoglycemic drugs; Z3A.38 38 weeks gestation of pregnancy; Z91.199 Patient's noncompliance with other medical treatment and regimen due to unspecified reason
CPT/HCPCS: 36415; 59025; 59409; 62282; 76819; 80053; 80307; 81001; 81002; 82570; 82948; 82962; 83036; 83735; 84156; 84550; 85025; 85610; 85730; 86780; 86803; 86850; 86900; 86901; 94760; 94762; 96360; 96361; 96365; 96366; 96374; 96375; G0378; J1100; J2405; J2590